=== PATIENT | female | born 1995 | race Caucasian/White ===

== ENCOUNTER 2018-06-12 11:03 | Outpatient (CLI) | payer OTHER ==
--- NOTE | 2018-06-12 13:33 | ULT ---
OBSTETRICAL ULTRASOUND: Date: 06-12-18 Comparison: None. History: 22-year-old female undergoing evaluation for size and dates. Technique: Multiplanar grayscale sonographic imaging of the gravid uterus obtained. FINDINGS: There is a single intrauterine gestation noted. Cervical length is 3.9 cm. The placenta is located po steriorly demonstrating no evidence for previa or abruption. A breech presentation is noted. cord insertion, intracranial contents, nose/lips, four chamber heart, urinary bladder, stomach, spine, kidneys and umbilical cord appear grossly unremarkable. heart rate is 132 beats/minute. Amniotic fluid index is 13 cm, within normal limits. biometry: BPD 5.0 cm 21 weeks 0 days HC 18.9 cm 21 weeks 1 days AC 16.7 cm 21 weeks 5 days FL 3.5 cm 21 weeks 1 days Average age based on ultrasound is 21 weeks 1 days. Estimated date of delivery is 10-22-18. Estimated weight is 419 grams, +/- 62 grams. IMPRESSION: Single intrauterine gestation as detailed above. POS: [facility]
== END 2018-06-12 11:04 | disposition home or self-care (01) ==
LOC: SCSULT 11:03
PROVIDERS: ATTEND Family Medicine
DX: Z34.02 Encounter for supervision of normal first pregnancy, second trimester (principal); Z3A.21 21 weeks gestation of pregnancy
CPT/HCPCS: 76805

== ENCOUNTER 2018-08-22 13:10 | Emergency (ER) | payer OTHER ==
[2018-08-22 16:08] LABS: Bilirubin Negative (Negative); Blood, Urine Negative (Negative); Clarity CLEAR (Clear); Glucose, Urine (Dipstick) Negative (Negative); Leukocyte Small (Negative); Nitrite Negative (Negative); Protein, Urine (Dipstick) Negative (Neg-Trace); Specific Gravity, Urine 1.006 (1.002-1.036); Urobilinogen 0.2 mg/dL (0.2-1.0); pH, Urine 6.5 (5.0-9.0)
[2018-08-22 16:11] LABS: Bacteria/HPF None Seen HPF (None Seen); Hyaline Casts/LPF 0-3 HYALINE CAST LPF (0-3 Hyaline); Pathc Cast-AUWi Flag 0.29 (0-2.49); RBC/HPF 0-3 HPF (0-3); Squamous Epithelial 0-3 HPF (0-3); WBC/HPF 0-3 HPF (0-3)
[2018-08-22] MEDS ORDERED: Acetaminophen 500 MG TAB ONE (16:17)
== END 2018-08-22 17:29 | disposition home or self-care (01) ==
LOC: ERS 13:10
DX: O99.89 Other specified diseases and conditions complicating pregnancy, childbirth and the puerperium (principal); R07.89 Other chest pain; Z3A.30 30 weeks gestation of pregnancy
CPT/HCPCS: 81003; 81015; 93005

== ENCOUNTER 2018-10-20 15:22 | Inpatient (IN) | payer OTHER ==
[2018-10-20 15:56] VITALS: BMI 42.4
[2018-10-20] MEDS: Lactated Ringer's 1,000 ML IV SCH ×2 (16:03→21:58)
[2018-10-20] MEDS ORDERED: NS / Oxytocin 40 units/1000ml 1,000 ML IV PRN (16:27)
[2018-10-20] MEDS ORDERED: HYDROcodone/Acetaminophen 5/325 mg Tablet PO PRN (16:27)
[2018-10-20] MEDS ORDERED: Carboprost 250 MCG/ML AMP IM PRN (16:27)
[2018-10-20] MEDS ORDERED: Diphenoxylate HCl/Atropine Tablet PO PRN (16:27)
[2018-10-20] MEDS ORDERED: Butorphanol Tartrate 1 MG/ML VIAL SLOW IVP PRN (16:27)
[2018-10-20] MEDS ORDERED: Ibuprofen 800 MG TAB PO PRN (16:27)
[2018-10-20] MEDS ORDERED: Ondansetron PF 4 MG/2 ML Vial IVP PRN ×2 (16:27→18:05)
[2018-10-20] MEDS ORDERED: Promethazine HCl 25 MG/ML VIAL IM PRN ×2 (16:27→18:05)
[2018-10-20] MEDS ORDERED: Misoprostol 200 MCG TAB PR PRN (16:27)
[2018-10-20] MEDS ORDERED: Lidocaine 1% (PF) 30 ML VIAL SC PRN (16:27)
[2018-10-20] MEDS ORDERED: NS w/ Oxytocin 10 units 500 ML IV SCH ×2 (16:30)
[2018-10-20 17:04] LABS: Hemoglobin 10.1 g/dL (12.0-16.0); Mean Corpuscular HGB CONC 32.4 g/dL (32.0-36.0); Mean Corpuscular Hemoglobin 26.5 pg (27.0-31.0); Mean Corpuscular Volume 81.7 fL (78.0-98.0); Mean Platelet Volume 9.4 fL (7.4-10.4); Platelet Count 240 thou/uL (130-400); Red Blood Cell (RBC) Count 3.83 mill/uL (4.20-5.40); White Blood Cell (WBC) Count 7.8 thou/uL (4.8-10.8)
[2018-10-20] MEDS ORDERED: Fentanyl 4 mcg/Bup 0.1% Cadd 100 ML ONE (17:05)
[2018-10-20] MEDS ORDERED: NS w/ Oxytocin 10 units 500 ML ONE (17:05)
[2018-10-20 17:45] LABS: HBSAg Index 0.38 S/CO (0-0.99); Hep B Surf Ag Non-Reactive S/CO (NonReactive); Syphilis Antibody Nonreactive (Nonreactive); Syphilis Antibody Index 0.05 S/CO (<1.00 Non-Reactive)
[2018-10-20] MEDS ORDERED: Acetaminophen 325 MG TAB PO PRN (18:05)
[2018-10-20] MEDS ORDERED: Naloxone HCl 0.4 mg/ml Vial IVP PRN ×2 (18:05)
[2018-10-20] MEDS ORDERED: diphenhydrAMINE 50 MG/ML VIAL IVP PRN (18:05)
[2018-10-20] MEDS ORDERED: Lactated Ringer's 500 ML IV PRN (18:05)
[2018-10-20] MEDS ORDERED: Eucerin (Mineral Oil/Petrolatum,White) 30 gm Jar TOP PRN (18:05)
[2018-10-20] MEDS ORDERED: ePHEDrine/0.9% NaCl/PF SYRINGE 50 mg/10 ml SLOW IVP PRN (18:05)
[2018-10-20] MEDS ORDERED: Fentanyl 4 mcg/Bupivacaine 0.1% Cassette 100 ML EPIDURAL SCH (18:15)
[2018-10-20] MEDS ORDERED: Communication Order-Pharmacy FS SCH (18:15)
[2018-10-21] MEDS ORDERED: Fentanyl 4 mcg/Bup 0.1% Cadd 100 ML ONE (00:21)
[2018-10-21] MEDS ORDERED: NS / Oxytocin 40 units/1000ml 1,000 ML ONE ×2 (02:38→05:08)
[2018-10-21] MEDS ORDERED: Lidocaine 1% (PF) 30 ML VIAL ONE (02:38)
[2018-10-21] MEDS ORDERED: Ampicillin 2 GM in Sodium Chloride 0.9% 100 ML IVPB SCH (02:45)
[2018-10-21] MEDS ORDERED: Gentamicin Sulfate 80 MG in Premix Bag 1 BAG IVPB SCH (02:45)
[2018-10-21] MEDS ORDERED: hydrALAZINE 20 MG/ML VIAL ONE ×3 (04:47→06:46)
[2018-10-21] MEDS ORDERED: cloNIDine 0.1 MG TAB PO PRN (05:12)
[2018-10-21] MEDS ORDERED: hydrALAZINE 20 MG/ML VIAL SLOW IVP SCH ×2 (06:38→07:00)
[2018-10-21] MEDS ORDERED: Lanolin Ointment 7 GM TUBE TOP PRN (06:38)
[2018-10-21] MEDS ORDERED: Bisacodyl 10 MG SUPP PR PRN (06:38)
[2018-10-21] MEDS ORDERED: NS / Oxytocin 40 units/1000ml 1,000 ML IV SCH (06:38)
[2018-10-21] MEDS ORDERED: Adacel (T-DAP) 0.5 ML SYRINGE IM ONE (06:38)
[2018-10-21] MEDS ORDERED: Ibuprofen 800 MG TAB PO SCH (06:38)
[2018-10-21] MEDS ORDERED: HYDROcodone/Acetaminophen 5/325 mg Tablet PO PRN ×2 (06:38)
[2018-10-21] MEDS ORDERED: Benzocaine-Menthol 82.5 ML CAN TOP PRN (06:38)
[2018-10-21] MEDS ORDERED: diphenhydrAMINE 25 MG CAP PO PRN (06:38)
[2018-10-21] MEDS ORDERED: Milk Of Magnesia 30 ML UDCUP PO PRN (06:38)
[2018-10-21] MEDS ORDERED: Ondansetron PF 4 MG/2 ML Vial IVP PRN (06:38)
[2018-10-21] MEDS ORDERED: Magnesium Sulfate 20 gm/500 ml 20 GM/500 ML BAG ONE (06:46)
[2018-10-21] MEDS: Magnesium Sulfate 20 gm/500 ml 20 GM/500 ML BAG IVPB SCH ×3 (07:00→23:45)
[2018-10-21] MEDS: Ibuprofen 800 MG TAB PO SCH ×2 (08:05→21:36)
[2018-10-21] MEDS: Docusate Calcium (SURFAK) 240 MG CAP PO SCH ×2 (09:18→21:37)
[2018-10-21] MEDS: Prenatal Vitamin 1 TAB PO SCH (09:18)
[2018-10-21] MEDS: Ferrous Sulfate 325 MG TAB PO SCH (09:18)
[2018-10-21] MEDS ORDERED: Bupivacaine 0.25% HCL 30 ML VIAL ONE (10:56)
[2018-10-21] MEDS: Lactated Ringer's 1,000 ML IV SCH (14:12)
[2018-10-22] MEDS ORDERED: Sodium Chloride 0.9% 10 ML ONE (00:54)
[2018-10-22 05:43] LABS: Hemoglobin 9.5 g/dL (12.0-16.0); Mean Corpuscular HGB CONC 32.4 g/dL (32.0-36.0); Mean Corpuscular Hemoglobin 25.9 pg (27.0-31.0); Mean Corpuscular Volume 79.9 fL (78.0-98.0); Mean Platelet Volume 8.4 fL (7.4-10.4); Platelet Count 244 thou/uL (130-400); RBC Distribution Width 14.2 % (11.5-14.5); Red Blood Cell (RBC) Count 3.69 mill/uL (4.20-5.40); White Blood Cell (WBC) Count 14.2 thou/uL (4.8-10.8)
[2018-10-22] MEDS: Ibuprofen 800 MG TAB PO SCH ×3 (06:14→21:59)
[2018-10-22] MEDS: Ferrous Sulfate 325 MG TAB PO SCH ×3 (10:07→16:59)
[2018-10-22] MEDS: Docusate Calcium (SURFAK) 240 MG CAP PO SCH ×2 (10:08→21:59)
[2018-10-22] MEDS: Prenatal Vitamin 1 TAB PO SCH (10:08)
[2018-10-23 04:03] VITALS: TEMP 98.3
[2018-10-23] MEDS: Ibuprofen 800 MG TAB PO SCH (06:09)
[2018-10-23 08:01] VITALS: BP 134/73
[2018-10-23] MEDS: Prenatal Vitamin 1 TAB PO SCH (08:31)
[2018-10-23] MEDS: Ferrous Sulfate 325 MG TAB PO SCH (08:31)
[2018-10-23] MEDS: Docusate Calcium (SURFAK) 240 MG CAP PO SCH (08:31)
== END 2018-10-23 11:40 | disposition home or self-care (01) | DRG 807 ==
LOC: L&D/OP 15:22 → L&D 15:25 → 3SW 10-22 12:32
PROVIDERS: ADMIT Family Medicine; ATTEND Family Medicine
PROC: 10E0XZZ Delivery of Products of Conception, External Approach (ICD-10-PCS; principal; 2018-10-21)
PROC: 10907ZC Drainage of Amniotic Fluid, Therapeutic from Products of Conception, Via Natural or Artificial Opening (ICD-10-PCS; 2018-10-21)
PROC: 3E033VJ Introduction of Other Hormone into Peripheral Vein, Percutaneous Approach (ICD-10-PCS; 2018-10-21)
PROC: 0UQGXZZ Repair Vagina, External Approach (ICD-10-PCS; 2018-10-21)
DX: O14.94 Unspecified pre-eclampsia, complicating childbirth (principal); Z37.0 Single live birth; O71.4 Obstetric high vaginal laceration alone; Z3A.39 39 weeks gestation of pregnancy
CPT/HCPCS: 36415; 51702; 82805; 85027; 86780; 86850; 86900; 86901; 87340; 88307; J0290; J0360; J1580; J2001; J2590; J3475; J3490; S0020